=== PATIENT | male | born 1960 | race Caucasian/White ===

== ENCOUNTER 2025-01-28 13:34 | Emergency (ER) | payer BC, MEDICAID ==
[~2025-01-28] VITALS: Ht 160 cm; Wt 75.0 kg
[~2025-01-28 13:34] MED LIST: OMEP20CA14 PO; PROP10TA10 PO
[2025-01-28 13:39] VITALS: O2SAT 98
[2025-01-28] MEDS: ACETAMINOPHEN 325MG TABLET PO ONE (14:05)
[2025-01-28 15:59] VITALS: BP 157/65; PULSE 99; RESP 18; TEMP 36.9; O2SAT 98
== END 2025-01-28 16:00 | disposition home or self-care (01) ==
LOC: ER 13:34
DX: M79.89 Other specified soft tissue disorders (principal); E11.9 Type 2 diabetes mellitus without complications; R51.9 Headache, unspecified
CPT/HCPCS: 73130; 93971; 99284